=== PATIENT | male | born 1980 ===

== ENCOUNTER 2020-11-18 13:12 | Emergency (ER) | payer SELFPAY ==
[~2020-11-18] VITALS: Ht 182.9 cm; Wt 83.4 kg
[2020-11-18 13:22] VITALS: BP 123/93
[2020-11-18] MEDS ORDERED: SODIUM CHLORIDE 0.9% 1,000ML IVBOLUS ONE (13:30)
[2020-11-18] MEDS ORDERED: PROCHLORPERAZINE 5 MG/ML, 2ML IVPush ONE (13:30)
[2020-11-18] MEDS ORDERED: DIPHENHYDRAMINE 50 MG/ML, 1ML IVPush ONE (13:30)
[2020-11-18] MEDS ORDERED: KETOROLAC 30 MG/1 ML IVPush ONE (13:30)
[2020-11-18] MEDS ORDERED: SODIUM CHLORIDE FLUSH 10ML SYR IVF ONE (13:30)
[2020-11-18 14:00] LABS: BASOPHILS % (AUTO) 0 % (0-1); EOSINOPHILS % (AUTO) 2 % (1-7); LYMPHOCYTES % (AUTO) 20 % (22-44); MEAN CORPUSCULAR HGB CONC 34.7 g/dL (33.2-36.2); MEAN PLATELET VOLUME 7.5 fL (7.4-10.4); MONOCYTES % (AUTO) 6 % (2-9); NEUTROPHILS % (AUTO) 73 % (42-75); PLATELET COUNT 294 x10^3/uL (130-400); RED BLOOD COUNT 5.78 x10^6/uL (4.38-5.82); RED CELL DISTRIBUTION WIDTH 13.4 % (9.4-14.8)
[2020-11-18 14:11] LABS: ALBUMIN 4.3 g/dL (3.4-5.0); ANION GAP 5 mmol/L (5-15); CALCIUM 9.2 mg/dL (8.5-10.1); CHLORIDE 102 mmol/L (98-107)
[2020-11-18 14:16] LABS: ALANINE AMINOTRANSFERASE 30 U/L (12-78); ALKALINE PHOSPHATASE 94 U/L (45-117); BILIRUBIN,TOTAL 0.6 mg/dL (0.2-1.0); CREATININE 1.25 mg/dL (0.7-1.3); TOTAL PROTEIN 7.9 g/dL (6.4-8.2)
[2020-11-18] MEDS ORDERED: DIPHENHYDRAMINE 50 MG/ML, 1ML ONE (19:33)
[2020-11-18] MEDS ORDERED: PROCHLORPERAZINE 5 MG/ML, 2ML ONE (19:33)
[2020-11-18] MEDS ORDERED: KETOROLAC 30 MG/1 ML ONE (19:33)
--- NOTE | 2020-11-18 19:36 | NUR ---
NOT IN LOBBY WHEN CALLED FOR A ROOM
--- NOTE | 2020-11-18 19:43 | NUR ---
no ans x 3
== END 2020-11-18 19:45 | disposition left against medical advice (07) ==
LOC: ED 13:17
DX: R51.9 Headache, unspecified (principal)
CPT/HCPCS: 36415; 80053; 85025; 99283